=== PATIENT | female | born 1935 | race Caucasian/White ===

== ENCOUNTER 2017-01-19 16:46 | Outpatient (CLI) | payer MEDICARE, OTHER ==
[2017-01-19 17:06] LABS: BASOPHILS % 0.7 (0.0-1.5); MEAN CORPUSCULAR HEMOGLOBIN 30.2 pg (28.0-34.0); MEAN CORPUSCULAR VOLUME 92.1 fl (80.0-100.0); MONOCYTES % 6.5 % (0.0-11.0); NEUTROPHILS # 3.8 # k/uL (1.4-7.7)
[2017-01-19 17:39] LABS: eGFR (African) > 60; eGFR (Non-African) > 60
== END 2017-01-19 16:47 ==
LOC: LAB 16:46
PROVIDERS: ATTEND Family Medicine
DX: E03.9 Hypothyroidism, unspecified (principal); R41.3 Other amnesia; Z51.81 Encounter for therapeutic drug level monitoring
CPT/HCPCS: 36415; 80053; 82607; 82746; 84439; 84443; 84481; 85025

== ENCOUNTER 2017-12-14 11:41 | Outpatient (CLI) | payer MEDICARE, OTHER ==
--- NOTE | 2017-12-17 14:29 | SACRAL TFESI ---
SUBJECTIVE: Ms. Lucia follows up with me with right lower extremity radiculitis at L4 dermatomal distribution breaking through her stimulator. Plan today for a right S1 transforaminal injection. I had thought to place an L5 transforaminal injection; however, her scoliotic segment is too severe at L5 to allow for needle placement. Plan for right S1 transforaminal epidural steroid injection. PROCEDURE: Right S1 nerve root transforaminal epidural steroid injection with fluoroscopic guidance. DESCRIPTION OF PROCEDURE: The risk and benefits of the injections were discussed with the patient, including the risk of infection, bleeding and nerve injury. Furthermore, I discussed the risk of steroid exposure causing hyperglycemia, hypertension, osteoporosis, of increased infectious risks. The patient understood these risks and agreed to proceed. Consent was obtained. The patient was placed in the prone position on the fluoroscopy table. The sacral region was cleaned and a sterile drape was applied. AP, lateral and oblique fluoroscopic views were obtained identifying the sacrum and the S1 foramen. A spinal needle was advanced under direct fluoroscopic guidance until the tip was located in the lateral aspect of the foramen epidural space. This was confirmed with AP and lateral fluoroscopic views. Care was exercised not to allow the needle to pass through the sacrum anteriorly. It was verified that there was no aspiration of CSF or blood. Omnipaque 240 myelogram dye was injected through the needle. The dye was noted to course in the desired distribution within the S1 sacral foramen epidural space and out the S1 nerve root. Medication was injected into the epidural space. The stylet was replaced in the needle and the needle was removed from the back. The patient tolerated the procedure well. The back was cleaned and a bandage was applied over the injection site. The patient was monitored for 10-20 minutes following the procedure. During this time the vital signs remained stable and the patient experienced no adverse sequelae. The patient was discharged home in good condition. ASSESSMENT: Lumbar radiculitis. FOLLOW UP: Return to clinic if problems develop or worsen. Dr. Davian VELASQUEZ
== END 2017-12-14 11:42 ==
LOC: OUT 11:41
PROVIDERS: ATTEND Anesthesiology Pain Medicine
DX: M54.16 Radiculopathy, lumbar region (principal)
CPT/HCPCS: 64483; 99213; G0463; Q9966

== ENCOUNTER 2018-06-09 16:46 | Outpatient (CLI) | payer MEDICARE, OTHER ==
[2018-06-09 21:31] LABS: BASO % 0.7 % (0.0-1.5); EOS % 3.2 % (0.0-6.8); LYMPH ABS # 2.39 thou/uL (0.60-4.00); MCH. 29.3 pg (28.0-34.0); MCV 87.8 fL (80.0-100.0); MONOCYTE % 9.4 % (0.0-11.0); MONOCYTE ABS # 0.61 thou/uL (0.00-0.90); PLATELET COUNT 324 thou/uL (130-400)
== END 2018-06-09 16:48 ==
LOC: LABRHC 16:46
PROVIDERS: ATTEND Physician Assistant
DX: M79.605 Pain in left leg (principal)
CPT/HCPCS: 84550; 85025

== ENCOUNTER 2018-06-29 11:03 | Outpatient (CLI) | payer MEDICARE, OTHER ==
[2018-06-29 12:24] LABS: eGFR (Non-African) > 60
== END 2018-06-29 11:04 ==
LOC: LAB 11:03
PROVIDERS: ATTEND Family Medicine
DX: R41.3 Other amnesia (principal); R73.9 Hyperglycemia, unspecified; E03.9 Hypothyroidism, unspecified
CPT/HCPCS: 36415; 80053; 82607; 82746; 84443

== ENCOUNTER 2018-08-31 10:19 | Outpatient (CLI) | payer MEDICARE, OTHER | END 2018-08-31 10:20 | LOC: LAB 10:19 | PROVIDERS: ATTEND Family Medicine | DX: E03.9 Hypothyroidism, unspecified (principal) | CPT/HCPCS: 36415; 84443 ==

== ENCOUNTER 2019-06-23 13:38 | Outpatient (CLI) | payer MEDICARE, OTHER ==
[2019-06-23 13:46] LABS: BASOPHILS % 0.6 % (0.0-1.5); NEUTROPHILS # 5.6 # k/uL (1.4-7.7)
[2019-06-23 13:51] LABS: eGFR (Non-African) > 60
== END 2019-06-23 13:40 ==
LOC: LABRHC 13:38
PROVIDERS: ATTEND Family Medicine
DX: N39.0 Urinary tract infection, site not specified (principal)
CPT/HCPCS: 80053; 85025; 87086

== ENCOUNTER 2019-08-08 17:25 | Emergency (ER) | payer MEDICARE, OTHER ==
--- NOTE | 2019-08-08 17:31 | ED Physician Documentation ---
General Adult - HISTORIAN Historian: patient - HPI Stated Complaint: per family she is not eating and drinking Chief Complaint: General Adult Further Comments: yes (Dr Corona called about this pt- he states she has recently had a UTI and started to fail at intake . She and family state she has not had proper nutrients in almost 2 weeks maybe more. She states she just hurts all over. No fever. She denies any recent injury - very minimal void and no bowel movement in possibly a week) - ROS CONST: recent illness (UTI ) EYES/ENT: none CVS/RESP: none GI/: abdominal pain MS/SKIN/LYMPH: denies: rash NEURO/PSYCH: denies: headache - PAST HX Past History: other (hypothyroidism ) Allergies/Adverse Reactions: Allergies Allergy/AdvReac Type Severity Reaction Status Date / Time levofloxacin Allergy Unknown Verified 08/08/19 18:10 codeine Allergy Verified 08/08/19 18:37 - SOCIAL HX Smoking History: non-smoker Alcohol Use: none Drug Use: none - FAMILY HX Family History: No - REVIEWED ASSESSMENTS Nursing Assessment Reviewed: Yes Vitals Reviewed: Yes Progress - Progress Progress: Discussed care with daughter she is requesting no CT scan due to she just had one last week that was normal DG 2039: discussed case with Dr Corona he is agreeable to discharge and follow up in office. Daughter and pt are aware DG General Adult Physical Exam - PHYSICAL EXAM GENERAL APPEARANCE: no distress EENT: eye inspection normal, pharynx normal, dry mucous membranes NECK: normal inspection RESPIRATORY: no resp distress, chest non-tender, breath sounds normal CVS: reg rate & rhythm, heart sounds normal ABDOMEN: soft, normal bowel sounds, no distension. No: tenderness BACK: normal inspection, no CVA tenderness SKIN: warm/dry, jaundice EXTREMITIES: non-tender, normal range of motion, no evidence of injury, no edema NEURO: oriented X3, CN's nml as tested Discharge Clincal Impression: Constipation Qualifiers: Constipation type: other constipation type Qualified Code(s): K59.09 - Other constipation Referrals: Davian Corona MD [Primary Care Provider] - 2 Days Comments: 1. Increase fluids 2. OTC stool softner as directed as needed 3. Increase food intake 4. Follow up with Dr Corona as scheduled 5. Return to ER for any increased concerns Condition: Stable Disposition: 01 HOME, SELF-CARE Decision to Admit: NO Date of Decison to Admit: 08/08/19 Decision Time: 20:42
[2019-08-08] MEDS: ONDANSETRON HCL/PF 4 MG/ 2ML VIAL IVP ONE (18:15)
[2019-08-08] MEDS: 0.9 % SODIUM CHLORIDE 1,000 ML IV ONE (18:15)
[2019-08-08 18:16] LABS: BASOPHILS % 0.6 % (0.0-1.5); NEUTROPHILS # 3.4 # k/uL (1.4-7.7)
[2019-08-08 18:24] LABS: eGFR (Non-African) > 60
[2019-08-08 18:57] VITALS: BP 184/91
[2019-08-08] MEDS: cefTRIAXone SODIUM 1 GM in 0.9 % SODIUM CHLORIDE 50 ML IV ONE (20:08)
[2019-08-09 06:11] LABS: APPEARANCE,URINE CLEAR (CLEAR); COLOR,URINE YELLOW (YELLOW)
[2019-08-09 06:12] LABS: OCCULT BLOOD,URINE NEGATIVE (NEGATIVE)
== END 2019-08-08 20:47 | disposition home or self-care (01) ==
LOC: ED 17:25
DX: K59.09 Other constipation (principal)
CPT/HCPCS: 74022; 80053; 81002; 85025; 96361; 96374; 99282; 99284; J2405; J7030; S1016

== ENCOUNTER 2019-08-11 15:39 | Outpatient (CLI) | payer MEDICARE, OTHER ==
--- NOTE | 2019-08-11 16:54 | Diagnostic Imaging Report ---
PATIENT MR#: [id number] PATIENT PATIENT NAME: GAURAV RICK DATE OF : 1935 REFERRING PHYSICIAN: Davian Corona EXAM DATE: 08/11/2019 ACCESSION NUMBER: [id number] EXAM DESCRIPTION: BILAT SHOULDERS 2-3 VIEW CLINICAL HISTORY: CHRONIC LT SHOULDER PAIN PT STATES LT SHOULDER PAIN REALLY BEEN HURTING X2 DAYS COMPARISON: No study for comparison is available at the time of interpretation. TECHNIQUE: DX bilateral shoulders, 3 views each Spinal stimulator leads are noted at the T8-11 levels RIGHT SHOULDER Osseous structures: The osseous structures are normal with no evidence of fracture or dislocation. Th ere is no osseous lesion or periosteal reaction. Joint spaces: The bones are well aligned. No glenohumeral articular surface abnormality is noted. The re is moderate arthrosis of the AC joint. Soft tissues: There is normal appearance of the soft tissues with no radiopaque foreign body seen. LEFT SHOULDER Osseous structures: The osseous structures are normal with no evidence of fracture or dislocation. Tr action enthesophytes of the rotator cuff insertion on the humeral head. Joint spaces: The bones are well aligned. Mild glenohumeral arthrosis with suggestion of 7 mm calcifi ed loose body adjacent to the superior glenoid. Severe AC joint arthrosis. Soft tissues: There is a calcification of the distal rotator cuff tendon. IMPRESSION: 1. Mild left shoulder arthrosis with suggestion of calcified loose body adjacent to the superior kristina oid. 2. 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 3. 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 Read by: Dr. Shar Packer Transcribed by: Shar Packer Transcribed Date: 08/11/2019 4:54:05 PM Electronically signed by: Dr. Shar Packer Date signed: 08/11/2019 4:54:05 PM
== END 2019-08-11 15:44 ==
LOC: LAB 15:39
PROVIDERS: ATTEND Family Medicine
DX: M25.512 Pain in left shoulder (principal); R63.4 Abnormal weight loss; G89.29 Other chronic pain
CPT/HCPCS: 36415; 84443; 85651